=== PATIENT | female | born 1950 | race Caucasian/White ===

== ENCOUNTER → 2024-07-29 14:50 | Outpatient (REF) | payer MEDICARE, SELFPAY | LOC: WDC 14:50 | PROVIDERS: ATTENDING PHYSICIAN Internal Medicine | DX: M81.0 Age-related osteoporosis without current pathological fracture (principal); Z76.89 Persons encountering health services in other specified circumstances; Z12.31 Encounter for screening mammogram for malignant neoplasm of breast | CPT/HCPCS: 77063; 77067; 77080 ==